=== PATIENT | male | born 1975 | race Caucasian/White ===

== ENCOUNTER 2016-07-24 19:22 | Emergency (ER) | payer MEDICARE, OTHER ==
--- NOTE | ~2016-07-24 | CR72 ---
[facility] A Service of [facility] RADIOLOGY TEXT RESULTS PATIENT: HARVEY MONET LOCATION: [facility] : [birth year] UNIT #: [id number] AGE: [address]: Ciera Cuevas MD SEX: M ORDER DR: [id number] [address] [address] [id number] E MR#: [id number] Acc #: [id number] NAME: HARVEY MONET : 1975 SEX: M STUDY DATE/TIME: 07/24/2016 18:47 UNIT: NITIN ROOM: STUDY DESCRIPTION: CR Chest Single View Portable Attending Physician: Ciera Cuevas M.D. Ordering Physician: Ciera Cuevas M.D. Primary Care Physician: Brenton Bergman M.D. MEDICAL IMAGING REPORT This report is preliminary unless electronic signature is present EXAM Portable chest. DATE OF EXAM 07/24/2016 INDICATIONS Fever today. PROCEDURE Frontal view chest. COMPARISON 02/27/2016 FINDINGS Heart size stable. No dense consolidation. No pleural fluid or pneumothorax. IMPRESSION No dense consolidation. Dictated by... Angelo Vital M.D. THIS IS AN ELECTRONICALLY VERIFIED REPORT Angelo Vital M.D. at 07/26/2016 7:00 AM EEMina/amauri TD: 07/24/2016 21:53 JOB #: [id number] [facility] A Service of [facility] RADIOLOGY TEXT RESULTS PATIENT: HARVEY MONET LOCATION: [facility] : 71 UNIT #: [id number] AGE: [address]: Ciera Cuevas MD SEX: M ORDER DR: MEDICAL IMAGING REPORT COPY
--- NOTE | ~2016-07-24 | EKG ---
PATIENT: HARVEY MONET UNIT #: [id number] Ventricular Rate: 124 BPM Atrial Rate: 124 BPM P-R Interval: 152 ms QRS Duration: 92 ms Q-T Interval: 312 ms QTC Calculation(Bezet): 448 ms P Butler: 40 degrees Calculated R Butler: 91 degrees Calculated T Butler: 14 degrees Diagnosis Line: Sinus tachycardia Diagnosis Line: Rightward axis Diagnosis Line: Borderline ECG Diagnosis Line: When compared with ECG of 27-FEB-2016 11:46, Diagnosis Line: Vent. rate has increased BY 56 BPM Diagnosis Line: T wave inversion now evident in Inferior leads Diagnosis Line: Confirmed by JOSE D MESSER MD ([id number]) on Diagnosis Line: 07/25/2016 10:47:13 PM INTERPRETING MD: ESTEVAN
[2016-07-24 19:22] LABS: PARTIAL THROMBOPLASTIN TIME 26.4 SECONDS (23.5-31.3); PROTHROMBIN TIME (PATIENT) 10.5 SECONDS (9.6-11.5)
[~2016-07-24 19:22] MED LIST: ALPRAZOLAM PO; CIPRO PO; DEPAKOTE PO; FLOMAX0.4 MG PO; RISPERIDONE PO; VICODIN PO
[2016-07-24 19:23] LABS: BASOPHIL# 0.1 X10e3 (0-0.3); BASOPHIL% 0.6 % (0-2.5); DIFF IND YES; EOSINOPHIL# 0.1 X10e3 (0-0.7); EOSINOPHIL% 0.4 % (0.0-7.0); HEMATOCRIT 41.3 % (38.0-50.0); HEMOGLOBIN 13.9 gm/dL (13.0-16.0); LYMPHOCYTE# 2.6 X10e3 (1.0-3.5); LYMPHOCYTE% 14.6 % (17.0-45.0); MEAN CELL VOLUME 89.3 FL (83-96); MEAN CORPUSCULAR HGB CONC 33.6 g/dL (30-36); MEAN PLATELET VOLUME 8.6 FL (6.5-11.5); MONOCYTE# 2.2 X10e3 (0-1.0); MONOCYTE% 12.4 % (3.0-12.0); PLATELET COUNT 190 X10e3 (140-420); RED BLOOD COUNT 4.63 X10e (3.90-5.60); WHITE BLOOD COUNT 18.1 X10e3 (4.0-10.5)
[2016-07-24 19:24] LABS: POC - CKMB <1.0 ng/mL (0.0-7.9); POC - TROPONIN <0.05 ng/mL (<=0.05)
[2016-07-24 19:35] LABS: INFLUENZA A NEG (NEG)
[2016-07-24 19:36] LABS: INFLUENZA B NEG (NEG)
[2016-07-24 19:55] LABS: ALKALINE PHOSPHATASE 60 U/L (32-92); ALT (SGPT) 34 U/L (10-40); AST (SGOT) 23 U/L (10-42); BILIRUBIN, DIRECT 0.1 mg/dL (0.0-0.2); BILIRUBIN,INDIRECT 0.6 mg/dL (0.0-0.9); BILIRUBIN,TOTAL 0.7 mg/dL (0.2-2.0); BLOOD UREA NITROGEN 14 mg/dL (9-23); BUN/CREATININE RATIO 15.55; CARBON DIOXIDE 25 mmol/L (22-31); CHLORIDE 104 mmol/L (100-111); CREATININE SERUM 0.9 mg/dL (0.6-1.4); GLOM FILT RATE Estimated ABOVE60 mL/min (>60); GLUCOSE FASTING 110 mg/dL (70-110); PROTEIN TOTAL SERUM 7.6 g/dL (6.0-8.3); SODIUM 138 mmol/L (135-145)
[2016-07-24 19:56] LABS: ANISOCYTOSIS SL; PLATELET ESTIMATE NORMAL (NORMAL)
[2016-07-24 20:01] LABS: URINE SOURCE CLEAN CATCH
[2016-07-24 20:07] LABS: URINE APPEARANCE CLOUDY; URINE BILIRUBIN NEG (NEG); URINE BLOOD 1+ (NEG); URINE COLOR YELLOW; URINE GLUCOSE NEG (NEG); URINE KETONE NEG (NEG); URINE LEUKOCYTE ESTERASE 3+ (NEG); URINE NITRATE POS (NEG); URINE PROTEIN NEG (NEG); URINE SPECIFIC GRAVITY 1.014 (1.003-1.035); URINE UROBILINOGEN 0.2 MG/DL (NEG)
[2016-07-24 20:10] LABS: CULTURE INDICATED? YES; URINE BACTERIA AUWI 4+ (NEGATIVE); URINE SQUAMOUS EPITHELIAL CELL NONE SEEN /[HPF]; UWBCS1 AUWI INNUM (0-5)
== END 2016-07-24 21:35 | disposition home or self-care (01) ==
LOC: CED 19:22
PROVIDERS: Student in an Organized Health Care Education/Training Program
DX: N39.0 Urinary tract infection, site not specified (principal); F19.939 Other psychoactive substance use, unspecified with withdrawal, unspecified
CPT/HCPCS: 36415; 71010; 80048; 80076; 81003; 82553; 83605; 84484; 85025; 85610; 85730; 87040; 87086; 87088; 87186; 87804; 93005; 96361; 96365; 99284; J0696

== ENCOUNTER 2016-09-02 02:26 | Emergency (ER) | payer MEDICARE, OTHER ==
--- NOTE | ~2016-09-02 | CR72 ---
[facility] A Service of [facility] RADIOLOGY TEXT RESULTS PATIENT: HARVEY MONET LOCATION: [place] : 71 UNIT #: [id number] AGE: [address]: Joss Irizarry MD SEX: M ORDER DR: [id number] [address] [address] [id number] E MR#: [id number] Acc #: [id number] NAME: HARVEY MONET : 1975 SEX: M STUDY DATE/TIME: 09/02/2016 2:31 UNIT: [facility] ROOM: STUDY DESCRIPTION: CR Chest Single View Portable Attending Physician: Joss Irizarry M.D. Ordering Physician: Joss Irizarry M.D. Primary Care Physician: Brenton Bergman M.D. MEDICAL IMAGING REPORT This report is preliminary unless electronic signature is present EXAM Portable chest. INDICATION Cough, shortness of air for the past 4 days. PROCEDURE Frontal view chest. COMPARISON 07/24/2016 FINDINGS Heart size within normal limits. No dense consolidation, effusion or pneumothorax. IMPRESSION No active process. Dictated by... Angelo Vital M.D. THIS IS AN ELECTRONICALLY VERIFIED REPORT Angelo Vital M.D. at 09/06/2016 7:30 AM EED/gene TD: 09/02/2016 04:41 JOB #: [id number] MEDICAL IMAGING REPORT [facility] A Service of [facility] RADIOLOGY TEXT RESULTS PATIENT: HARVEY MONET LOCATION: [place] : 71 UNIT #: [id number] AGE: [address]: Joss Irizarry MD SEX: M ORDER DR: Page 1 of 1 COPY
[2016-09-02 01:01] LABS: INFLUENZA A NEG (NEG); INFLUENZA B NEG (NEG)
== END 2016-09-02 03:45 | disposition home or self-care (01) ==
LOC: CFTX 02:26
DX: R50.9 Fever, unspecified (principal); F20.9 Schizophrenia, unspecified
CPT/HCPCS: 71010; 87804; 99283